=== PATIENT | male | born 1950 | race Caucasian/White ===

== ENCOUNTER 2024-02-10 06:24 | Inpatient (IN) ==
[2024-02-10] MEDS: oxyCODONE/Acetamin 5/325 mg TAB PO ONE (08:05)
[2024-02-10] MEDS: Ondansetron 4 mg VIAL 2 MG/ML 2 ml VIAL IV ONE (08:06)
[2024-02-10] MEDS: Morphine 4 MG/ML VIAL (1 ml) IV ONE ×2 (08:06→13:43)
[2024-02-10] MEDS ORDERED: Al Hydrox/Mg Hydrox/Simet LIQ 30 ML UDC PO PRN (15:46)
[2024-02-10] MEDS ORDERED: Naloxone Nasal Spray 4 MG/0.1 ML NASAL.SPR INTRANASAL PRN (15:55)
[2024-02-10 16:11] LABS: ABS Eosinophils 0.1 10^3/uL (0.0-0.5); ABS Lymphocytes 0.6 10^3/uL (1.0-4.8); ABS Monocytes 0.7 10^3/uL (0.0-1.1); ABS Neutrophils 6.8 10^3/uL (1.5-7.6); ABS Nucleated RBC 0.01 10^3/ul; Eosinophil % 0.8 %; Hematocrit 37.1 % (38-53); Hemoglobin 12.8 g/dL (13.2-16.3); Lymphocyte % 7.4 %; Mean Corpuscular Hemoglobin 30.5 pg (27-33); Mean Corpuscular Hgb Conc 34.5 g/dL (31-36); Mean Corpuscular Volume 88.6 fL (80-97); Mean Platelet Volume 7.5 fL (7.5-11.2); Nucleated Red Blood Cells % 0.1 %/100WBC (0.0-0.8); Platelet Count 195 10^3/uL (150-450); Red Blood Count 4.19 10^6/uL (4.06-5.63); White Blood Count 8.3 10^3/uL (3.6-10.2)
[2024-02-10 16:26] LABS: INR 1.14 (0.83-1.13)
[2024-02-10] MEDS: Heparin 5000 UNITS/ML 1 mL VIAL SUBCUT SCH (17:03)
[2024-02-10 17:10] LABS: Albumin 3.7 g/dL (3.2-5.2); Albumin/Globulin Ratio 1.6 (1-3); Calcium 9.7 mg/dL (8.6-10.3); Creatinine, Serum 1.9 mg/dL (0.67-1.17); Globulin 2.3 g/dL (2-4); Potassium 3.2 mmol/L (3.5-5.0); Total Bilirubin 0.9 mg/dL (0.2-1.0); eGFR CKD-EPI 36.3 (>60)
[2024-02-10] MEDS: Morphine 2 MG/ML SYRINGE IV PRN (18:10)
[2024-02-10] MEDS: Heparin DRIP 25,000 UNITS BAG 25,000 UNITS/250 ML BAG IV SCH (19:47)
[2024-02-10] MEDS: Heparin 5000 UNITS/ML 1 mL VIAL IV PRN (19:50)
[2024-02-11 05:15] LABS: ABS Basophils 0.1 10^3/uL (0.0-0.1); ABS Eosinophils 0.1 10^3/uL (0.0-0.5); ABS Lymphocytes 0.7 10^3/uL (1.0-4.8); ABS Monocytes 0.7 10^3/uL (0.0-1.1); ABS Neutrophils 5.3 10^3/uL (1.5-7.6); Hematocrit 35.5 % (38-53); Hemoglobin 12.4 g/dL (13.2-16.3); Lymphocyte % 9.6 %; Mean Corpuscular Hemoglobin 30.9 pg (27-33); Mean Corpuscular Volume 88.1 fL (80-97); Mean Platelet Volume 7.8 fL (7.5-11.2); Nucleated Red Blood Cells % 0.1 %/100WBC (0.0-0.8); Platelet Count 190 10^3/uL (150-450); Red Blood Count 4.03 10^6/uL (4.06-5.63); Red Cell Distribution Width 15.8 % (12-17); White Blood Count 6.9 10^3/uL (3.6-10.2)
[2024-02-11 07:23] LABS: Calcium 9.6 mg/dL (8.6-10.3); Creatinine, Serum 1.71 mg/dL (0.67-1.17); Potassium 3.1 mmol/L (3.5-5.0); eGFR CKD-EPI 41.2 (>60)
[2024-02-11 07:36] LABS: Magnesium 1.8 mg/dL (1.9-2.7)
[2024-02-11] MEDS: DULoxetine DR 60 mg CAP PO SCH (08:49)
[2024-02-11] MEDS: KCL 20 MEQ/100 ML IVPREMIX 20 MEQ/100 ML BAG IV SCH (08:49)
[2024-02-12 07:01] LABS: Creatinine, Serum 1.47 mg/dL (0.67-1.17); eGFR CKD-EPI 49.4 (>60)
[2024-02-12 08:27] LABS: ABS Basophils 0.1 10^3/uL (0.0-0.1); ABS Eosinophils 0.4 10^3/uL (0.0-0.5); ABS Lymphocytes 0.8 10^3/uL (1.0-4.8); ABS Monocytes 0.5 10^3/uL (0.0-1.1); ABS Neutrophils 4.5 10^3/uL (1.5-7.6); Eosinophil % 5.6 %; Hematocrit 37.2 % (38-53); Hemoglobin 12.7 g/dL (13.2-16.3); Lymphocyte % 12.7 %; Mean Corpuscular Hemoglobin 30.6 pg (27-33); Mean Corpuscular Hgb Conc 34.3 g/dL (31-36); Mean Corpuscular Volume 89.3 fL (80-97); Mean Platelet Volume 8.3 fL (7.5-11.2); Nucleated Red Blood Cells % 0.1 %/100WBC (0.0-0.8); Platelet Count 183 10^3/uL (150-450); Red Blood Count 4.16 10^6/uL (4.06-5.63); Red Cell Distribution Width 15.3 % (12-17); White Blood Count 6.3 10^3/uL (3.6-10.2)
[2024-02-12 09:57] LABS: Calcium 9.4 mg/dL (8.6-10.3); Potassium 3.7 mmol/L (3.5-5.0)
[2024-02-12 10:10] LABS: Magnesium 1.9 mg/dL (1.9-2.7)
[2024-02-13 06:49] LABS: ABS Basophils 0.1 10^3/uL (0.0-0.1); ABS Eosinophils 0.4 10^3/uL (0.0-0.5); ABS Lymphocytes 0.9 10^3/uL (1.0-4.8); ABS Monocytes 0.6 10^3/uL (0.0-1.1); ABS Neutrophils 4.3 10^3/uL (1.5-7.6); Eosinophil % 5.8 %; Hematocrit 34.7 % (38-53); Lymphocyte % 14.9 %; Mean Corpuscular Hemoglobin 30.7 pg (27-33); Mean Corpuscular Hgb Conc 34.5 g/dL (31-36); Mean Platelet Volume 8.6 fL (7.5-11.2); Nucleated Red Blood Cells % 0.1 %/100WBC (0.0-0.8); Platelet Count 175 10^3/uL (150-450); Red Cell Distribution Width 15.5 % (12-17); White Blood Count 6.2 10^3/uL (3.6-10.2)
[2024-02-13 07:04] LABS: Calcium 9.4 mg/dL (8.6-10.3); Creatinine, Serum 1.53 mg/dL (0.67-1.17); Potassium 4.1 mmol/L (3.5-5.0); eGFR CKD-EPI 47.1 (>60)
[2024-02-13] MEDS ORDERED: Heparin 5000 UNITS/ML 1 mL VIAL IV SCH (10:00)
[2024-02-13] MEDS ORDERED: Regadenoson 0.4 MG/5 ML SYRINGE ONE (12:00)
[2024-02-13] MEDS: Aspirin EC 81 mg TAB.EC (enteric coated) PO SCH (12:58)
[2024-02-13] MEDS: Heparin DRIP 25,000 UNITS BAG 25,000 UNITS/250 ML BAG IV SCH (13:06)
[2024-02-14 08:20] LABS: ABS Eosinophils 0.3 10^3/uL (0.0-0.5); ABS Lymphocytes 0.7 10^3/uL (1.0-4.8); ABS Monocytes 0.5 10^3/uL (0.0-1.1); ABS Neutrophils 3.6 10^3/uL (1.5-7.6); Eosinophil % 6.2 %; Hematocrit 34.6 % (38-53); Lymphocyte % 13.8 %; Mean Corpuscular Hemoglobin 30.6 pg (27-33); Mean Corpuscular Hgb Conc 34.7 g/dL (31-36); Mean Corpuscular Volume 88.1 fL (80-97); Mean Platelet Volume 8.3 fL (7.5-11.2); Platelet Count 186 10^3/uL (150-450); Red Blood Count 3.93 10^6/uL (4.06-5.63); Red Cell Distribution Width 15.6 % (12-17); White Blood Count 5.3 10^3/uL (3.6-10.2)
[2024-02-14 08:36] LABS: Calcium 9.4 mg/dL (8.6-10.3); Creatinine, Serum 1.54 mg/dL (0.67-1.17); Potassium 3.7 mmol/L (3.5-5.0); eGFR CKD-EPI 46.8 (>60)
[2024-02-14] MEDS: Acetaminophen IV 1 GM/100ML 1,000 MG/100 ML BAG IV SCH (14:02)
[2024-02-14] MEDS ORDERED: Ropivacaine 5 MG/ML 20 ML VIAL 0.5% (100 MG) ONE (16:30)
[2024-02-14] MEDS ORDERED: Dexamethasone IV 4 MG/ML VIAL 1 ml VIAL ONE (16:33)
[2024-02-14] MEDS ORDERED: Albumin Human 5% 12.5 GM/250 ML BTL IV ONE (19:12)
[2024-02-14] MEDS ORDERED: Bupivacaine 0.5% SDV PF 30ML VIAL INJ ONE (19:23)
[2024-02-14] MEDS ORDERED: ceFAZolin 1 GM in Dextrose 2 GM/100 ML BAG IVPB ONE (20:02)
[2024-02-14] MEDS ORDERED: Propofol 10 MG/ML 20 ML BTL ONE ×2 (20:06→21:01)
[2024-02-14] MEDS ORDERED: fentaNYL 100 mcg/2 ml 50 MCG/ML VIAL ONE ×2 (20:13→20:28)
[2024-02-14] MEDS ORDERED: Acetaminophen IV 1 GM/100ML 1,000 MG/100 ML BAG IV ONE (20:14)
[2024-02-14] MEDS ORDERED: Phenylephrine IV 10 MG/ML 1 ml VIAL ONE (21:00)
[2024-02-14] MEDS ORDERED: Ondansetron 4 mg VIAL 2 MG/ML 2 ml VIAL IV PRN (22:26)
[2024-02-14] MEDS ORDERED: Ondansetron ODT 4 mg TAB 4 MG TAB PO PRN (22:26)
[2024-02-14] MEDS ORDERED: Magnesium Hydroxide LIQ 30 ML UDC PO PRN (22:26)
[2024-02-14] MEDS: Lactated Ringers 1000 ml BAG 1,000 ML IV SCH (23:52)
[2024-02-15] MEDS: ceFAZolin 1 GM ADVAN 1 GM in NS 0.9% 50 ML 50 ML IVPB SCH (05:15)
[2024-02-15 07:06] LABS: Calcium 8.9 mg/dL (8.6-10.3); Creatinine, Serum 1.85 mg/dL (0.67-1.17); Potassium 4.4 mmol/L (3.5-5.0); eGFR CKD-EPI 37.5 (>60)
[2024-02-15 07:17] LABS: ABS Lymphocytes 0.3 10^3/uL (1.0-4.8); ABS Monocytes 0.3 10^3/uL (0.0-1.1); ABS Neutrophils 5.9 10^3/uL (1.5-7.6); Hematocrit 32.1 % (38-53); Hemoglobin 11.2 g/dL (13.2-16.3); Lymphocyte % 4.6 %; Mean Corpuscular Hemoglobin 30.9 pg (27-33); Mean Corpuscular Hgb Conc 34.9 g/dL (31-36); Mean Corpuscular Volume 88.5 fL (80-97); Mean Platelet Volume 8.6 fL (7.5-11.2); Platelet Count 191 10^3/uL (150-450); Red Blood Count 3.63 10^6/uL (4.06-5.63); Red Cell Distribution Width 15.6 % (12-17); White Blood Count 6.5 10^3/uL (3.6-10.2)
[2024-02-15] MEDS: Magnesium Hydroxide LIQ 30 ML UDC PO SCH (08:38)
[2024-02-15] MEDS: Vitamin THERAPEUTIC TAB PO SCH (08:39)
[2024-02-15] MEDS: Senna TAB 8.6 mg TAB PO PRN (08:41)
[2024-02-15] MEDS: Calcium Carb (TUMS) 500 mg CHEW TAB PO ONE (18:14)
[2024-02-15] MEDS: Morphine 2 MG/ML SYRINGE IV PRN (18:52)
[2024-02-15] MEDS: HYDROmorphone 0.5 MG/0.5 ML SYRINGE IV SLOW PU ONE (22:22)
[2024-02-15] MEDS: Lactulose 30 ml UDC PO PRN (23:47)
[2024-02-16] MEDS: HYDROmorphone 0.5 MG/0.5 ML SYRINGE IV SLOW PU PRN (02:26)
[2024-02-16 06:06] LABS: ABS Eosinophils 0.2 10^3/uL (0.0-0.5); ABS Lymphocytes 0.6 10^3/uL (1.0-4.8); ABS Monocytes 0.6 10^3/uL (0.0-1.1); ABS Neutrophils 4.7 10^3/uL (1.5-7.6); Eosinophil % 3.1 %; Hematocrit 32.6 % (38-53); Hemoglobin 11.4 g/dL (13.2-16.3); Lymphocyte % 9.6 %; Mean Corpuscular Hemoglobin 31.3 pg (27-33); Mean Corpuscular Volume 89.5 fL (80-97); Mean Platelet Volume 7.8 fL (7.5-11.2); Platelet Count 218 10^3/uL (150-450); Red Blood Count 3.65 10^6/uL (4.06-5.63); Red Cell Distribution Width 15.5 % (12-17); White Blood Count 6.2 10^3/uL (3.6-10.2)
[2024-02-16 06:26] LABS: Calcium 9.3 mg/dL (8.6-10.3); Creatinine, Serum 1.66 mg/dL (0.67-1.17); Potassium 4.3 mmol/L (3.5-5.0); eGFR CKD-EPI 42.7 (>60)
[2024-02-16 07:23] LABS: Magnesium 2.4 mg/dL (1.9-2.7)
[2024-02-16 07:30] LABS: High Sensitivity Troponin 1 Hr 84 pg/mL (<20)
[2024-02-16] MEDS ORDERED: Senna TAB 8.6 mg TAB PO PRN (17:31)
[2024-02-17 07:59] LABS: Hematocrit 29.9 % (38-53); Hemoglobin 10.6 g/dL (13.2-16.3); Mean Corpuscular Hemoglobin 31.3 pg (27-33); Mean Corpuscular Hgb Conc 35.4 g/dL (31-36); Mean Corpuscular Volume 88.5 fL (80-97); Mean Platelet Volume 8.2 fL (7.5-11.2); Platelet Count 206 10^3/uL (150-450); Red Blood Count 3.38 10^6/uL (4.06-5.63); Red Cell Distribution Width 16.1 % (12-17); White Blood Count 4.8 10^3/uL (3.6-10.2)
[2024-02-17 08:29] LABS: ABS Eosinophils 0.3 10^3/uL (0.0-0.5); ABS Lymphocytes 0.6 10^3/uL (1.0-4.8); ABS Monocytes 0.6 10^3/uL (0.0-1.1); ABS Neutrophils 3.2 10^3/uL (1.5-7.6); Eosinophil % 7.3 %; Nucleated Red Blood Cells % 0.1 %/100WBC (0.0-0.8)
[2024-02-17 08:31] LABS: Calcium 8.6 mg/dL (8.6-10.3); Creatinine, Serum 1.52 mg/dL (0.67-1.17); Potassium 3.9 mmol/L (3.5-5.0); eGFR CKD-EPI 47.5 (>60)
[2024-02-18 05:54] LABS: Hematocrit 29.3 % (38-53); Hemoglobin 10.4 g/dL (13.2-16.3); Mean Corpuscular Hemoglobin 31.3 pg (27-33); Mean Corpuscular Hgb Conc 35.5 g/dL (31-36); Mean Corpuscular Volume 88.3 fL (80-97); Mean Platelet Volume 7.9 fL (7.5-11.2); Platelet Count 224 10^3/uL (150-450); Red Blood Count 3.31 10^6/uL (4.06-5.63); Red Cell Distribution Width 15.7 % (12-17); White Blood Count 5.1 10^3/uL (3.6-10.2)
[2024-02-18 06:36] LABS: ABS Basophils 0.1 10^3/uL (0.0-0.1); ABS Eosinophils 0.4 10^3/uL (0.0-0.5); ABS Lymphocytes 0.8 10^3/uL (1.0-4.8); ABS Monocytes 0.7 10^3/uL (0.0-1.1); ABS Neutrophils 3.1 10^3/uL (1.5-7.6); ABS Nucleated RBC 0.01 10^3/ul; Eosinophil % 8.6 %; Lymphocyte % 16.7 %; Nucleated Red Blood Cells % 0.1 %/100WBC (0.0-0.8)
[2024-02-19 05:42] LABS: Hematocrit 29.3 % (38-53); Hemoglobin 10.4 g/dL (13.2-16.3); Mean Corpuscular Hemoglobin 31.1 pg (27-33); Mean Corpuscular Hgb Conc 35.6 g/dL (31-36); Mean Corpuscular Volume 87.3 fL (80-97); Mean Platelet Volume 7.7 fL (7.5-11.2); Platelet Count 254 10^3/uL (150-450); Red Blood Count 3.35 10^6/uL (4.06-5.63); Red Cell Distribution Width 15.5 % (12-17); White Blood Count 5.3 10^3/uL (3.6-10.2)
[2024-02-19 06:14] LABS: Calcium 8.9 mg/dL (8.6-10.3); Creatinine, Serum 1.72 mg/dL (0.67-1.17); Potassium 3.6 mmol/L (3.5-5.0); eGFR CKD-EPI 40.9 (>60)
[2024-02-19 07:22] LABS: ABS Basophils 0.1 10^3/uL (0.0-0.1); ABS Eosinophils 0.4 10^3/uL (0.0-0.5); ABS Monocytes 0.7 10^3/uL (0.0-1.1); ABS Neutrophils 3.1 10^3/uL (1.5-7.6); Lymphocyte % 19.1 %; Nucleated Red Blood Cells % 0.1 %/100WBC (0.0-0.8); RBC Morphology Normal (Normal)
[2024-02-19] MEDS: Lactated Ringers 1000 ml BAG 1,000 ML IV SCH (15:59)
[2024-02-20 09:15] LABS: Hematocrit 29.8 % (38-53); Hemoglobin 10.6 g/dL (13.2-16.3); Mean Corpuscular Hemoglobin 31.3 pg (27-33); Mean Corpuscular Hgb Conc 35.5 g/dL (31-36); Mean Corpuscular Volume 88.1 fL (80-97); Mean Platelet Volume 7.4 fL (7.5-11.2); Platelet Count 297 10^3/uL (150-450); Red Blood Count 3.38 10^6/uL (4.06-5.63); Red Cell Distribution Width 15.5 % (12-17); White Blood Count 5.3 10^3/uL (3.6-10.2)
[2024-02-20 09:45] LABS: ABS Basophils 0.1 10^3/uL (0.0-0.1); ABS Eosinophils 0.4 10^3/uL (0.0-0.5); ABS Lymphocytes 0.9 10^3/uL (1.0-4.8); ABS Monocytes 0.5 10^3/uL (0.0-1.1); ABS Neutrophils 3.5 10^3/uL (1.5-7.6); Eosinophil % 7.3 %; Lymphocyte % 16.5 %
[2024-02-20 10:01] LABS: Creatinine, Serum 1.59 mg/dL (0.67-1.17); Potassium 3.9 mmol/L (3.5-5.0)
[2024-02-20 12:10] LABS: Rapid COVID-19 Molecular Undetected (Undetected)
[2024-02-21 09:45] VITALS: BP 157/56
== END 2024-02-21 10:30 | DRG 481 ==
LOC: ED 06:24 → EDHOLD 06:24 → SUATTDRO 15:46 → SSU 02-11 20:21
PROVIDERS: ADMIT Internal Medicine; ATTEND Student in an Organized Health Care Education/Training Program

== ENCOUNTER 2024-08-19 14:05 | Inpatient (IN) ==
[2024-08-19 15:48] LABS: ABS Basophils 0.1 10^3/uL (0.0-0.1); ABS Eosinophils 0.1 10^3/uL (0.0-0.5); ABS Lymphocytes 0.6 10^3/uL (1.0-4.8); ABS Monocytes 0.5 10^3/uL (0.0-1.1); ABS Neutrophils 6.1 10^3/uL (1.5-7.6); Eosinophil % 1.3 %; Hematocrit 33.2 % (38-53); Hemoglobin 11.3 g/dL (13.2-16.3); Lymphocyte % 8.4 %; Mean Corpuscular Hgb Conc 33.9 g/dL (31-36); Mean Corpuscular Volume 88.6 fL (80-97); Mean Platelet Volume 8.4 fL (7.5-11.2); Platelet Count 208 10^3/uL (150-450); Red Blood Count 3.75 10^6/uL (4.06-5.63); Red Cell Distribution Width 15.3 % (12-17); White Blood Count 7.4 10^3/uL (3.6-10.2)
[2024-08-19 16:12] LABS: Albumin 3.5 g/dL (3.2-5.2); Albumin/Globulin Ratio 1.7 (1-3); Calcium 9.4 mg/dL (8.6-10.3); Creatinine, Serum 1.18 mg/dL (0.67-1.17); Globulin 2.1 g/dL (2-4); Potassium 3.9 mmol/L (3.5-5.0); Total Bilirubin 1.4 mg/dL (0.2-1.0); Total Protein 5.6 g/dL (6.4-8.9)
[2024-08-19] MEDS ORDERED: Al Hydrox/Mg Hydrox/Simet LIQ 30 ML UDC PO PRN (16:31)
[2024-08-19] MEDS: Morphine 2 MG/ML SYRINGE IV PRN (19:47)
[2024-08-20] MEDS ORDERED: Ondansetron 4 mg VIAL 2 MG/ML 2 ml VIAL ONE (01:22)
[2024-08-20] MEDS: Ondansetron 4 mg VIAL 2 MG/ML 2 ml VIAL IV ONE (01:23)
[2024-08-20 04:45] LABS: ABS Lymphocytes 0.8 10^3/uL (1.0-4.8); ABS Monocytes 0.7 10^3/uL (0.0-1.1); ABS Neutrophils 6.4 10^3/uL (1.5-7.6); Eosinophil % 0.4 %; Hematocrit 33.1 % (38-53); Hemoglobin 11.5 g/dL (13.2-16.3); Lymphocyte % 10.5 %; Mean Corpuscular Hemoglobin 30.7 pg (27-33); Mean Corpuscular Hgb Conc 34.8 g/dL (31-36); Mean Corpuscular Volume 88.2 fL (80-97); Mean Platelet Volume 8.3 fL (7.5-11.2); Platelet Count 213 10^3/uL (150-450); Red Blood Count 3.75 10^6/uL (4.06-5.63)
[2024-08-20 05:29] LABS: Calcium 9.7 mg/dL (8.6-10.3); Creatinine, Serum 1.01 mg/dL (0.67-1.17); Potassium 3.7 mmol/L (3.5-5.0); eGFR CKD-EPI 77.1 (>60)
[2024-08-20 08:28] LABS: Magnesium 1.8 mg/dL (1.9-2.7)
[2024-08-20] MEDS: DULoxetine DR 60 mg CAP PO SCH (09:24)
[2024-08-20] MEDS: Magnesium Sulfate 2 gm BAG 2 GM/50 ML BAG IVPB ONE (13:00)
[2024-08-20] MEDS: Heparin 5000 UNITS/ML 1 mL VIAL SUBCUT SCH (13:02)
[2024-08-20] MEDS: Ondansetron 4 mg VIAL 2 MG/ML 2 ml VIAL IV PRN (13:18)
[2024-08-20] MEDS: NS 0.9% 1000 ml BAG 1,000 ML IV SCH (16:06)
[2024-08-21 06:07] LABS: ABS Basophils 0.1 10^3/uL (0.0-0.1); ABS Eosinophils 0.1 10^3/uL (0.0-0.5); ABS Lymphocytes 0.8 10^3/uL (1.0-4.8); ABS Monocytes 1.1 10^3/uL (0.0-1.1); ABS Neutrophils 5.9 10^3/uL (1.5-7.6); Eosinophil % 0.7 %; Hematocrit 29.4 % (38-53); Hemoglobin 10.2 g/dL (13.2-16.3); Lymphocyte % 10.6 %; Mean Corpuscular Hemoglobin 30.8 pg (27-33); Mean Corpuscular Hgb Conc 34.9 g/dL (31-36); Mean Corpuscular Volume 88.5 fL (80-97); Mean Platelet Volume 8.6 fL (7.5-11.2); Platelet Count 180 10^3/uL (150-450); Red Blood Count 3.32 10^6/uL (4.06-5.63); Red Cell Distribution Width 14.7 % (12-17); White Blood Count 7.9 10^3/uL (3.6-10.2)
[2024-08-21 06:24] LABS: Calcium 9.3 mg/dL (8.6-10.3); Creatinine, Serum 1.05 mg/dL (0.67-1.17); Potassium 3.7 mmol/L (3.5-5.0); eGFR CKD-EPI 73.6 (>60)
[2024-08-21] MEDS ORDERED: Ondansetron 4 mg VIAL 2 MG/ML 2 ml VIAL IV PRN (10:24)
[2024-08-21] MEDS ORDERED: Naloxone 0.4 mg VIAL 0.4 mg/ml 1 ml VIAL IV PRN (10:24)
[2024-08-21] MEDS ORDERED: NS 0.45% 1000 ml BAG 1,000 ML IV SCH (11:00)
[2024-08-21] MEDS ORDERED: Propofol 10 MG/ML 20 ML BTL ONE (11:07)
[2024-08-21] MEDS ORDERED: Midazolam 2 mg/2 ml VIAL 1 mg/ml 2 ml VIAL (2 mg) ONE (11:07)
[2024-08-21] MEDS ORDERED: Ondansetron 4 mg VIAL 2 MG/ML 2 ml VIAL ONE (11:07)
[2024-08-21] MEDS ORDERED: Rocuronium 50 mg VIAL 10 mg/ml 5 ml VIAL (50 mg) ONE (11:07)
[2024-08-21] MEDS ORDERED: Dexamethasone IV 4 MG/ML VIAL 1 ml VIAL ONE (11:07)
[2024-08-21] MEDS ORDERED: Lidocaine 2% PF 5 ML VIAL ONE (11:07)
[2024-08-21] MEDS ORDERED: fentaNYL 250 mcg/5 ml 50 MCG/ML 5 ml VIAL (250 MCG) ONE (11:07)
[2024-08-21] MEDS ORDERED: ceFAZolin 2 GM PREMIX 2 GM/50 ML BAG ONE (12:05)
[2024-08-21] MEDS ORDERED: fentaNYL 100 mcg/2 ml 50 MCG/ML VIAL ONE (13:28)
[2024-08-21] MEDS: fentaNYL 100 mcg/2 ml 50 MCG/ML VIAL IV PRN (13:33)
[2024-08-21] MEDS ORDERED: ceFAZolin VIAL 2 GM in NS 0.9% 100 ml BAG 100 ML IVPB SCH (14:00)
[2024-08-21 14:04] LABS: Hemoglobin 9.9 g/dL (13.2-16.3)
[2024-08-21] MEDS: Lactated Ringers 1000 ml BAG 1,000 ML IV ONE (15:16)
[2024-08-21] MEDS: Acetaminophen IV 1 GM/100ML 1,000 MG/100 ML BAG IV ONE (15:46)
[2024-08-21] MEDS: Lactated Ringers 1000 ml BAG 1,000 ML IV SCH (15:47)
[2024-08-21] MEDS: Buffered Lidocaine 1% SYRIN 1 ml INTRADERM ONE (15:47)
[2024-08-21] MEDS: Scopolamine 1 mg/72hr PATCH TRANSDERM ONE (15:47)
[2024-08-21] MEDS: ceFAZolin 2 GM PREMIX 2 GM/50 ML BAG IV SCH (20:58)
[2024-08-22] MEDS: Saline NASAL SPRAY 0.65% BTL BOTH NARES PRN (01:37)
[2024-08-22 06:14] LABS: ABS Lymphocytes 0.6 10^3/uL (1.0-4.8); ABS Neutrophils 6.9 10^3/uL (1.5-7.6); Hematocrit 22.7 % (38-53); Hemoglobin 7.8 g/dL (13.2-16.3); Lymphocyte % 6.6 %; Mean Corpuscular Hemoglobin 30.6 pg (27-33); Mean Corpuscular Hgb Conc 34.5 g/dL (31-36); Mean Corpuscular Volume 88.5 fL (80-97); Mean Platelet Volume 8.6 fL (7.5-11.2); Platelet Count 155 10^3/uL (150-450); Red Blood Count 2.57 10^6/uL (4.06-5.63); Red Cell Distribution Width 14.7 % (12-17); White Blood Count 8.4 10^3/uL (3.6-10.2)
[2024-08-22 06:38] LABS: Calcium 9.1 mg/dL (8.6-10.3); Creatinine, Serum 1.2 mg/dL (0.67-1.17); Potassium 4.1 mmol/L (3.5-5.0); eGFR CKD-EPI 62.7 (>60)
[2024-08-22] MEDS: Fluticasone NASAL SPRAY 50MCG 16 gm SPRAY BTL BOTH NARES SCH (10:33)
[2024-08-22] MEDS ORDERED: Enoxaparin 40 MG/0.4 ML SYR SUBCUT SCH (12:00)
[2024-08-22 14:16] LABS: Hematocrit 24.5 % (38-53); Hemoglobin 8.7 g/dL (13.2-16.3)
[2024-08-22 14:43] LABS: Hemoglobin 8.4 g/dL (13.2-16.3)
[2024-08-23 06:12] LABS: ABS Eosinophils 0.2 10^3/uL (0.0-0.5); ABS Lymphocytes 0.7 10^3/uL (1.0-4.8); ABS Monocytes 0.7 10^3/uL (0.0-1.1); ABS Neutrophils 5.3 10^3/uL (1.5-7.6); Eosinophil % 2.6 %; Hemoglobin 7.8 g/dL (13.2-16.3); Lymphocyte % 9.6 %; Mean Corpuscular Hemoglobin 31.3 pg (27-33); Mean Corpuscular Hgb Conc 35.5 g/dL (31-36); Mean Corpuscular Volume 88.2 fL (80-97); Mean Platelet Volume 8.4 fL (7.5-11.2); Platelet Count 165 10^3/uL (150-450); Red Cell Distribution Width 14.5 % (12-17); White Blood Count 6.8 10^3/uL (3.6-10.2)
[2024-08-23 06:29] LABS: Calcium 9.1 mg/dL (8.6-10.3); Creatinine, Serum 1.03 mg/dL (0.67-1.17); Magnesium 1.8 mg/dL (1.9-2.7); Potassium 3.9 mmol/L (3.5-5.0); eGFR CKD-EPI 75.3 (>60)
[2024-08-23 14:10] LABS: Hematocrit 22.5 % (38-53); Hemoglobin 7.8 g/dL (13.2-16.3)
[2024-08-23] MEDS: Senna TAB 8.6 mg TAB PO SCH (20:31)
[2024-08-24 14:02] LABS: Hematocrit 24.9 % (38-53); Hemoglobin 8.6 g/dL (13.2-16.3)
[2024-08-24] MEDS: Polyethylene Glycol 3350 17 GM PACKET PO PRN (14:45)
[2024-08-24] MEDS: Magnesium Hydroxide LIQ 30 ML UDC PO PRN (20:25)
[2024-08-25] MEDS: Senna TAB 8.6 mg TAB PO ONE (00:32)
[2024-08-25 13:41] LABS: Hematocrit 23.1 % (38-53); Hemoglobin 8.1 g/dL (13.2-16.3)
[2024-08-25] MEDS: Magnesium CITRATE LIQ 300 ML BTL PO ONE (18:07)
[2024-08-26 09:30] LABS: Rapid COVID-19 Molecular Undetected (Undetected)
[2024-08-26 09:41] VITALS: BP 113/67
== END 2024-08-26 13:45 | DRG 481 ==
LOC: ED 14:05 → EDHOLD 16:31 → SSU 08-20 09:43
PROVIDERS: ADMIT Internal Medicine; ATTEND Internal Medicine